=== PATIENT | female | born 1990 | race African-American/Black ===

== ENCOUNTER 2016-09-27 21:08 | Inpatient (IN) ==
[2016-09-27 21:46] LABS: URINE SOURCE VOIDED
[2016-09-27 21:53] LABS: BILIRUBIN URINE NEGATIVE (NEGATIVE); BLOOD URINE NEGATIVE (NEGATIVE); CLARITY CLEAR (CLEAR); COLOR YELLOW; GLUCOSE URINE NEGATIVE (NEGATIVE); LEUKOCYTES URINE 2+ (NEGATIVE); NITRITE URINE NEGATIVE (NEGATIVE); PROTEIN URINE NEGATIVE (NEGATIVE); UROBILINOGEN URINE NORMAL
[2016-09-27 22:28] LABS: UR AMPHETAMINES QUAL NONE DETECTED (NONE DETECT); UR BARBITUATES QUAL NONE DETECTED (NONE DETECT); UR BENZODIAZEPIN QUAL NONE DETECTED (NONE DETECT); UR COCAINE QUAL NONE DETECTED (NONE DETECT); UR MDMA QUAL NONE DETECTED (NONE DETECT); UR METHADONE QUAL NONE DETECTED (NONE DETECT); UR METHAMPHETAMINE QUAL NONE DETECTED (NONE DETECT); UR OPIATES QUAL NONE DETECTED (NONE DETECT); UR OXYCODONE QUAL NONE DETECTED (NONE DETECT); UR PCP QUAL NONE DETECTED (NONE DETECT)
[2016-09-27 22:29] LABS: UR CANNABINOIDS QUAL NONE DETECTED (NONE DETECT); UR TCA QUAL NONE DETECTED (NONE DETECT)
[2016-09-28] MEDS ORDERED: STADOL IV ONE ×2 (01:15→04:39)
[2016-09-28] MEDS: LR 1,000 ML IV SCH ×3 (01:58→09:18)
[2016-09-28] MEDS ORDERED: KEFZOL 1 GM/D5W 50 ML IV PRN (06:19)
[2016-09-28] MEDS ORDERED: TYLENOL PO PRN (06:19)
[2016-09-28] MEDS ORDERED: STADOL IV PRN (06:19)
[2016-09-28] MEDS ORDERED: ZOFRAN IV PRN (06:19)
[2016-09-28] MEDS ORDERED: PEPCID IV PRN (06:19)
[2016-09-28] MEDS ORDERED: PEPCID PO PRN (06:19)
[2016-09-28] MEDS ORDERED: SODIUM CHLORIDE 0.9% INJ SCH (06:30)
[2016-09-28] MEDS ORDERED: PITOCIN 30 UNITS/LR 500 ML IV SCH (06:30)
[2016-09-28] MEDS ORDERED: LR 2,000 ML ONE (07:13)
[2016-09-28] MEDS ORDERED: FENTANYL-BUPIV-NS 2 MCG-0.1% 200 ML ONE (07:13)
[2016-09-28] MEDS ORDERED: MARCAINE 0.25% PF ONE (07:13)
[2016-09-28 07:30] LABS: MANUAL DIFF NEEDED? NO
[2016-09-28 07:33] LABS: BASO% 0.1 % (0.0-0.8); EOS# 0.09 X1000 (0.0-0.7); EOS% 1.1 % (0.0-10.0); HEMATOCRIT 29.3 % (37.0-47.0); HEMOGLOBIN 9.1 g/dL (12.0-16.0); IMM GRAN# 0.02 X1000 (0.0-0.04); IMM GRAN% 0.2 % (0.0-0.5); LYMPH# 1.98 X1000 (1.2-3.4); LYMPH% 24.5 % (20.5-51.1); MCH 24.1 PG (27-31); MCHC 31.1 g/dL (33-37); MCV 77.7 FL (81-99); MONO# 0.57 X1000 (0.11-0.59); MPV 10.2 FL (7.4-10.4); NEUT% 67.1 % (42.2-75.2); PLT 203 X1000 (130-400); RBC 3.77 XMIL (4.2-5.4)
[2016-09-28] MEDS ORDERED: XYLOCAINE-MPF 1% ONE (08:04)
[2016-09-28] MEDS ORDERED: FENTANYL-BUPIV-NS 2 MCG-0.1% 200 ML EPIDURAL PRN (08:09)
[2016-09-28] MEDS ORDERED: PITOCIN IM PRN (18:31)
[2016-09-28] MEDS ORDERED: PITOCIN 20 UNITS/LR 1,000 ML IV SCH (18:31)
[2016-09-28] MEDS ORDERED: BENADRYL PO PRN (18:31)
[2016-09-28] MEDS ORDERED: CYTOTEC PO PRN (18:31)
[2016-09-28] MEDS ORDERED: AMBIEN PO PRN (18:31)
[2016-09-28] MEDS ORDERED: PITOCIN 30 UNITS/LR 500 ML IV ONE (18:31)
[2016-09-28] MEDS ORDERED: MINERAL OIL MISC PRN (18:31)
[2016-09-28] MEDS ORDERED: BENADRYL IV PRN (18:31)
[2016-09-28] MEDS ORDERED: M-M-R II VACCINE SUBQ ONE (18:31)
[2016-09-28] MEDS ORDERED: XYLOCAINE-MPF 1% INJ PRN (18:31)
[2016-09-28] MEDS ORDERED: HYDROXYZINE PO PRN (18:31)
[2016-09-28] MEDS ORDERED: NORCO-5 PO PRN (18:31)
[2016-09-28] MEDS ORDERED: HYDROXYZINE IM PRN (18:31)
[2016-09-28] MEDS ORDERED: BOOSTRIX VACCINE IM ONE (18:31)
[2016-09-28] MEDS: MOTRIN PO PRN (19:26)
[2016-09-28] MEDS: PERI MEDS (DERMOPLAST/NUPERCAINAL/TUCKS) MISC PRN (20:12)
[2016-09-28] MEDS: PERICOLACE PO SCH (20:13)
[2016-09-28] MEDS: NORCO-10 PO PRN (20:16)
[2016-09-28] MEDS: TRANDATE PO SCH (20:20)
--- NOTE | 2016-09-28 21:04 | OPERATIVE NOTE ---
PROCEDURE DATE: 09/28/2016 PREDELIVERY DIAGNOSES: 1. Intrauterine at 38 weeks. 2. Late care. 3. Imprisonment. 4. Hypertension. POST DELIVERY DIAGNOSES: 1. Intrauterine at 38 weeks. 2. Late care. 3. Imprisonment. 4. Hypertension. 5. Shoulder dystocia. PROCEDURE: Vaginal delivery. PHYSICIAN: Dr. Bynum. ANESTHESIA: Epidural by Dr. Bran. FINDINGS: Viable male infant, 7 pounds 1 ounce. Cord was 3 vessels. There was a shoulder dystocia resolved by Antonio and pushing down the anterior shoulder below the pubic bone in delivery. No evidence of any injury or defect from the delivery. ESTIMATED BLOOD LOSS: 100 mL. No lacerations or tears. DESCRIPTION OF DELIVERY: Ms. Kelly is a 26-year-old 4, para 3 who started getting care approximately 3 weeks ago, presents in active labor. Has a slow but steady progression throughout the day but comes to complete, begins pushing, delivers the head at which point the anterior shoulder was noted to be impacted so Antonio was performed and the hand was placed between the pubic bone and the shoulder and the shoulder was gently pushed down and delivered underneath the pubic bone followed by delivery of the rest of the baby. was placed on mother's abdomen. Cord was doubly clamped and cut. Care of was then taken over by nursery personnel. Cord blood was obtained. Cord was inspected and found to have 3 vessels. Then traction on the cord resulted in delivery of the placenta after approximately 4 minutes. It was inspected, found to be intact. Inspection of the perineum and vagina did not reveal any lacerations. There were no clots or foreign material noted in the vagina. Estimated blood loss 100 mL. All counts correct.
[2016-09-28] MEDS ORDERED: EPIFOAM FOAM TOP PRN (22:56)
[2016-09-29] MEDS: NORCO-10 PO PRN ×6 (00:07→23:49)
[2016-09-29] MEDS: MOTRIN PO PRN ×3 (04:29→23:49)
[2016-09-29 05:56] LABS: MANUAL DIFF NEEDED? NO
[2016-09-29 06:03] LABS: BASO% 0.1 % (0.0-0.8); EOS% 0.8 % (0.0-10.0); HEMATOCRIT 27.4 % (37.0-47.0); HEMOGLOBIN 8.4 g/dL (12.0-16.0); IMM GRAN# 0.04 X1000 (0.0-0.04); IMM GRAN% 0.3 % (0.0-0.5); LYMPH# 2.46 X1000 (1.2-3.4); LYMPH% 19.9 % (20.5-51.1); MCH 23.7 PG (27-31); MCHC 30.7 g/dL (33-37); MCV 77.2 FL (81-99); MONO# 0.93 X1000 (0.11-0.59); MONO% 7.5 % (1.7-9.3); NEUT% 71.4 % (42.2-75.2); PLT 207 X1000 (130-400); RBC 3.55 XMIL (4.2-5.4)
[2016-09-29] MEDS: PRECARE PO SCH (08:44)
[2016-09-29] MEDS: TRANDATE PO SCH ×2 (08:44→23:50)
--- NOTE | 2016-09-29 14:58 | PROGRESS NOTE ---
PROCEDURE DATE: 09/29/2016 SUBJECTIVE: She is day 1. She is without complaints. OBJECTIVE: Vital Signs: Her vital signs are stable. She is afebrile. General Appearance: She is alert and cooperative, in no distress. Neck: Supple. Lungs: Clear. Heart: Regular sinus rhythm. Abdomen: Slightly distended. Uterus is firm. Extremities: No cyanosis, clubbing, or edema in her extremities. LABORATORY DATA: Hemoglobin and hematocrit of 8.4/27.4. Expect routine care and discharge in the morning.
[2016-09-29] MEDS ORDERED: MYLICON ONE (23:47)
[2016-09-29] MEDS: PERICOLACE PO SCH (23:49)
[2016-09-30 07:41] VITALS: BP 154/85
[2016-09-30] MEDS: PRECARE PO SCH (09:02)
[2016-09-30] MEDS: TRANDATE PO SCH (09:03)
[2016-09-30] MEDS ORDERED: FLUZONE QUAD 2016-2017 SYRINGE IM ONE (10:00)
[2016-09-30] MEDS: PERI MEDS (DERMOPLAST/NUPERCAINAL/TUCKS) MISC PRN (13:09)
--- NOTE | 2016-09-30 21:15 | DISCHARGE SUMMARY ---
ADMISSION DATE: 09/28/2016 DISCHARGE DATE: 09/30/2016 ADMIT DIAGNOSES: 1. active labor discharged 09/30. 2. Term delivered via vaginal delivery. CONDITION: Stable. DIET: As tolerated. ACTIVITY: Routine . MEDICATIONS: 800, Paxton 5, vitamins with iron and stool softeners. FOLLOWUP: She is to follow up at 6 weeks. She is being discharged back to intermediate. Please refer to Ms. Jaramillo's records and delivery note. She was admitted either night or early Saturday morning in active labor, had a vaginal delivery, has done well afterwards. Currently is ambulating, voiding, tolerating p.o. and is okay for discharge. PHYSICAL EXAMINATION: Vital Signs: Stable. She is afebrile. General: She is alert and cooperative, no distress. Neck: Supple. Lungs: Clear. Heart: Regular sinus rhythm. Abdomen: Slightly distended. Uterus is firm. Extremity: +2 lower extremity edema. Will discharge home as above.
== END 2016-09-30 14:30 | DRG 774 ==
LOC: OPLD 21:08 → P.LD 21:12 → OPLD 09-28 06:16 → P.LD 09-28 06:17
PROVIDERS: ADMIT Obstetrics & Gynecology; ATTEND Obstetrics & Gynecology
PROC: 10E0XZZ Delivery of Products of Conception, External Approach (ICD-10-PCS; principal; 2016-09-28)
PROC: 10907ZC Drainage of Amniotic Fluid, Therapeutic from Products of Conception, Via Natural or Artificial Opening (ICD-10-PCS; 2016-09-28)
DX: O10.92 Unspecified pre-existing hypertension complicating childbirth (principal); O66.0 Obstructed labor due to shoulder dystocia; Z37.0 Single live birth; Z3A.38 38 weeks gestation of pregnancy; Z23 Encounter for immunization
CPT/HCPCS: 59025; 81003; 85025; 86592; 90715; G0477; J0595; J2590; J7120; Q2038; S0020

== ENCOUNTER 2019-09-15 18:52 | Inpatient (IN) ==
[2019-09-15 19:53] LABS: URINE SOURCE CATH
[2019-09-15 20:13] LABS: BILIRUBIN URINE NEGATIVE (NEGATIVE); BLOOD URINE TRACE (NEGATIVE); COLOR YELLOW; GLUCOSE URINE NEGATIVE (NEGATIVE); KETONE URINE TRACE mg/dL (NEGATIVE); LEUKOCYTES URINE LARGE (NEGATIVE); NITRITE URINE POSITIVE (NEGATIVE); PH URINE 5.5; PROTEIN URINE 50 mg/dL (NEGATIVE); SP GRAVITY URINE 1.032; TURBIDITY URINE TURBID (CLEAR); UROBILINOGEN URINE NORMAL (NORMAL)
[2019-09-15 20:16] LABS: BASO# 0.02 X1000 (0.0-0.2); BASO% 0.2 % (0.0-0.8); EOS# 0.07 X1000 (0.0-0.7); EOS% 0.7 % (0.0-10.0); HEMOGLOBIN 12.7 g/dL (12.0-16.0); IMM GRAN# 0.02 X1000 (0.0-0.04); IMM GRAN% 0.2 % (0.0-0.5); LYMPH# 2.43 X1000 (1.2-3.4); LYMPH% 23.2 % (20.5-51.1); MCH 26.5 PG (27-31); MCHC 32.6 g/dL (33-37); MCV 81.3 FL (81-99); MONO# 0.24 X1000 (0.11-0.59); MONO% 2.3 % (1.7-9.3); MPV 11.4 FL (7.4-10.4); NEUT# 7.68 X1000 (1.4-6.5); NEUT% 73.4 % (42.2-75.2); PLT 279 X1000 (130-400); WBC 10.46 X1000 (4.8-10.8)
[2019-09-15 20:17] LABS: UR EPITHELIAL CELLS >10 /HPF (<10); URINE BACTERIA 3+ /HPF; URINE RBC <10 /HPF (<10); URINE WBC TNTC /HPF (<10)
--- NOTE | 2019-09-15 20:19 | PROVIDER DOCUMENTATION ---
This chart was entered by Swetha Vaca Scribe, acting as scribe for Wayne Mcleod MD. [id number] Abuse/Overdose - General Source: police <Wayne Mcleod - Last Filed: 09/15/19 20:07> <Jc Flower - Last Filed: 09/15/19 21:11> - General Chief Complaint: Overdose Stated Complaint: DECREASED RESPONSIVENESS Time Seen by Provider: 09/15/19 18:56 Allergies/Adverse Reactions: Allergies Allergy/AdvReac Type Severity Reaction Status Date / Time No Known Allergies Allergy Verified 09/22/16 19:30 Home Medications: Home Medication List Medication Instructions Recorded Confirmed Last Taken Type Labetalol [Trandate] 100 mg PO BID 09/28/16 09/28/16 1 Day Ago History ~09/27/16 Hydrocodone/APAP 5 mg/325 mg 1 each PO Q3-4H PRN PRN #20 tablet 09/30/16 Unknown Rx [Clare-5] Ibuprofen [Motrin] 800 mg PO Q8H PRN PRN #30 tablet 09/30/16 Unknown Rx Pnv Cmb#95/Ferrous Fumarate/FA 1 tab PO DAILY #30 tablet 09/30/16 Unknown Rx [ Tablet] Sennosides/Docusate Sodium 1 each PO QHS #30 tablet 09/30/16 Unknown Rx [Pericolace] - History of Present Illness-Drug/Alcohol Nature of Presenting Problem: Pt is a 29 yof who presents to ED via police after being involved in a high speed alex. Pt is being charged with felony shoplifting and Police in ED states that the arresting officer told them she took "5 of 30mg of roxycodone. Police in ED also reports that the pt is 3 months and nurse had a heart beat of 157. Pt is unresponsive and not alert. Pt is not verbally responding to questions but nods her head "yes" when asked if she knows where she is. (Wayne Mcleod) Review of Systems - Adult - REVIEW OF SYSTEMS - ADULT ROS:: unobtainable per condition Constitutional: reports: see HPI <Wayne Mcleod - Last Filed: 09/15/19 20:07> Past History - Adult - PAST MEDICAL HISTORY-ADULT Review of Records: reports: Old Records Reviewed, Nursing Assessment Review, Medications Reviewed, Social history reviewed & non-contributory. Obstetrical/Gynecological: reports: PID/STD - PRIOR SURGERIES/PROCEDURES Surgical/Procedure History: reports: cholecystectomy - IMMUNIZATION STATUS Childhood Immunizations: See Nurse Assessment Flu Vaccine: See Nurse Assessment - FAMILY HISTORY Family History: reviewed, not pertinent - SOCIAL HISTORY Smoking: cigarettes Substance Use: denies <Wayne Mcleod - Last Filed: 09/15/19 20:07> Physical Exam-General - CONSTITUTIONAL General Appearance: other (very sedated and responds minimally to question) - HEAD, EARS, NOSE, MOUTH & THROAT HENMT: normocephalic/atraumatic - RESPIRATORY Respiratory: lungs clear, normal breath sounds - CARDIOVASCULAR Cardiovascular: regular rate, rhythm, no edema - GASTROINTESTINAL (ABDOMEN) Abdominal Exam: normal bowel sounds, soft, no organomegaly - MUSCULOSKELETAL Extremity: no pedal edema Peripheral Pulses: radial (R): 3+, radial (L): 3+ - SKIN Integumentary: normal color - NEUROLOGIC Neurologic: other (very sedated) - PSYCHIATRIC Psych/Mental Status: other (very sedated) <Wayne Mcleod - Last Filed: 09/15/19 20:07> Progress - PLAN OF CARE/RESULTS Result Diagrams: 09/15/19 19:37 - CHANGE OF SHIFT REPORT (ED Provider) 1 Report Given and Care Transferred to:: DR Marquez at the end of my shift Time of Transfer: 20:19 (poison control to get involved) <Wayne Mcleod - Last Filed: 09/15/19 20:07> - PLAN OF CARE/RESULTS Result Diagrams: 09/15/19 19:37 09/15/19 19:37 - CONSULTS/PCP/HOSPITALIST Notification #1 *Consult/PCP/Hospitalist*: Dr Amado Time Discussed: 21:10 Consult Disposition: Will see in ED <Jc Flower - Last Filed: 09/15/19 21:11> - PLAN OF CARE/RESULTS Progress/Plan/Lab Results: Vital Signs - 8 hr 09/15/19 19:14 09/15/19 19:16 09/15/19 19:18 Temperature 98.5 F Pulse Rate 85 Respiratory Rate 20 Blood Pressure 129/88 129/88 O2 Sat by Pulse Oximetry 100 97 09/15/19 19:30 09/15/19 19:45 09/15/19 20:00 Temperature Pulse Rate Respiratory Rate Blood Pressure O2 Sat by Pulse Oximetry 96 98 98 09/15/19 20:03 09/15/19 20:15 09/15/19 20:30 Temperature Pulse Rate Respiratory Rate Blood Pressure 135/70 O2 Sat by Pulse Oximetry 95 96 98 09/15/19 20:32 09/15/19 20:45 09/15/19 20:47 Temperature Pulse Rate Respiratory Rate Blood Pressure 99/76 118/81 O2 Sat by Pulse Oximetry 96 96 95 Laboratory Results - last 24 hr 09/15/19 09/15/19 09/15/19 19:37 19:37 19:37 WBC 10.46 RBC 4.80 Hgb 12.7 Hct 39.0 MCV 81.3 MCH 26.5 L MCHC 32.6 L RDW Std Deviation 19.0 H Plt Count 279 MPV 11.4 H Immature Gran % (Auto) 0.2 Neut % (Auto) 73.4 Lymph % (Auto) 23.2 [place] % (Auto) 2.3 Eos % (Auto) 0.7 Baso % (Auto) 0.2 Immature Gran # (Auto) 0.02 Neut # (Auto) 7.68 H Lymph # (Auto) 2.43 [place] # (Auto) 0.24 Eos # (Auto) 0.07 Baso # (Auto) 0.02 Sodium 139 Potassium 3.7 Chloride 103 Carbon Dioxide 21 L Anion Gap 15 BUN 12 Creatinine 0.7 Estimated GFR/1.73 m2 > 60 BUN/Creatinine Ratio 17 Glucose 101 Calculated Osmolality 277 Calcium 11.1 H Total Bilirubin 0.28 AST 14 ALT 7 L Alkaline Phosphatase 85 Total Protein 8.2 Albumin 4.9 Globulin 3.3 Albumin/Globulin Ratio 1.5 Ser , Semi-Qnt Urine Source Urine Color Urine Turbidity Urine pH Ur Specific Lorenzo Urine Protein Ur Glucose (Stick) Ur Ketones (Stick) Urine Blood Urine Nitrite Urine Bilirubin Urobilinogen Dipstick Urine Leukocytes Urine WBC (Auto) Urine RBC (Auto) U Epithel Cells (Auto) Urine Bacteria (Auto) Urine Crystals Small Round Cells Urine Casts Urine Yeast-like Cells Urine Test Urine Opiates Screen Ur Oxycodone Screen Ur Methadone, Qual Ur Barbiturates Screen Ur Phencyclidine Scrn Ur Amphetamines Screen U Benzodiazepines Scrn Urine Cocaine Screen U Cannabinoids Screen Plasma/Serum Ethyl Alc 09/15/19 09/15/19 09/15/19 19:37 19:47 19:47 WBC RBC Hgb Hct MCV MCH MCHC RDW Std Deviation Plt Count MPV Immature Gran % (Auto) Neut % (Auto) Lymph % (Auto) [place] % (Auto) Eos % (Auto) Baso % (Auto) Immature Gran # (Auto) Neut # (Auto) Lymph # (Auto) [place] # (Auto) Eos # (Auto) Baso # (Auto) Sodium Potassium Chloride Carbon Dioxide Anion Gap BUN Creatinine Estimated GFR/1.73 m2 BUN/Creatinine Ratio Glucose Calculated Osmolality Calcium Total Bilirubin AST ALT Alkaline Phosphatase Total Protein Albumin Globulin Albumin/Globulin Ratio Ser , Semi-Qnt < 1.0 Urine Source CATH Urine Color YELLOW Urine Turbidity TURBID Urine pH 5.5 Ur Specific Lorenzo 1.032 Urine Protein 50 A Ur Glucose (Stick) NEGATIVE Ur Ketones (Stick) TRACE A Urine Blood TRACE A Urine Nitrite POSITIVE A Urine Bilirubin NEGATIVE Urobilinogen Dipstick NORMAL Urine Leukocytes LARGE A Urine WBC (Auto) TNTC A Urine RBC (Auto) <10 U Epithel Cells (Auto) >10 A Urine Bacteria (Auto) 3+ Urine Crystals Not Reportable Small Round Cells Not Reportable Urine Casts Not Reportable Urine Yeast-like Cells Not Reportable Urine Test Urine Opiates Screen PRESUMPTIVE POSITIVE A Ur Oxycodone Screen PRESUMPTIVE POSITIVE A Ur Methadone, Qual NONE DETECTED Ur Barbiturates Screen NONE DETECTED Ur Phencyclidine Scrn NONE DETECTED Ur Amphetamines Screen PRESUMPTIVE POSITIVE A U Benzodiazepines Scrn NONE DETECTED Urine Cocaine Screen NONE DETECTED U Cannabinoids Screen NONE DETECTED Plasma/Serum Ethyl Alc 09/15/19 19:47 WBC RBC Hgb Hct MCV MCH MCHC RDW Std Deviation Plt Count MPV Immature Gran % (Auto) Neut % (Auto) Lymph % (Auto) [place] % (Auto) Eos % (Auto) Baso % (Auto) Immature Gran # (Auto) Neut # (Auto) Lymph # (Auto) [place] # (Auto) Eos # (Auto) Baso # (Auto) Sodium Potassium Chloride Carbon Dioxide Anion Gap BUN Creatinine Estimated GFR/1.73 m2 BUN/Creatinine Ratio Glucose Calculated Osmolality Calcium Total Bilirubin AST ALT Alkaline Phosphatase Total Protein Albumin Globulin Albumin/Globulin Ratio Ser , Semi-Qnt Urine Source Urine Color Urine Turbidity Urine pH Ur Specific Lorenzo Urine Protein Ur Glucose (Stick) Ur Ketones (Stick) Urine Blood Urine Nitrite Urine Bilirubin Urobilinogen Dipstick Urine Leukocytes Urine WBC (Auto) Urine RBC (Auto) U Epithel Cells (Auto) Urine Bacteria (Auto) Urine Crystals Small Round Cells Urine Casts Urine Yeast-like Cells Urine Test NEGATIVE Urine Opiates Screen Ur Oxycodone Screen Ur Methadone, Qual Ur Barbiturates Screen Ur Phencyclidine Scrn Ur Amphetamines Screen U Benzodiazepines Scrn Urine Cocaine Screen U Cannabinoids Screen Plasma/Serum Ethyl Alc Orders Category Date Time Status ACETAMINOPHEN [TDM] Stat Lab 09/15/19 20:03 Received ALCOHOL BLOOD Stat Lab 09/15/19 19:37 Completed CBC WITH ELECTRONIC DIFF [HEME] Stat Lab 09/15/19 19:37 Completed COMPREHENSIVE METABOLIC PANEL [CHEM] Stat Lab 09/15/19 19:37 Completed TEST-URINE [PREG] Stat Lab 09/15/19 19:47 Completed QUANT TEST Stat Lab 09/15/19 19:37 Completed SALICYLATES [TDM] Stat Lab 09/15/19 20:03 Received UA NIMS W/REFLEX CULT [URINALYSIS] Stat Lab 09/15/19 19:47 Completed URINE CULTURE [RM] Routine Lab 09/15/19 20:27 Received URINE DRUG SCREEN Stat Lab 09/15/19 19:47 Completed URINE MANUAL MICROSCOPIC [URINALYSIS] Stat Lab 09/15/19 19:47 Completed 0.9% Sodium Chloride Inj [Ns] 1,000 ml Med 09/15/19 20:36 Active IV 999 mls/hr EKG [EKG] Stat Ther 09/15/19 20:18 Ordered Departure <Wayne Mcleod - Last Filed: 09/15/19 20:07> - Departure Date of Disposition Decision: 09/15/19 Time of Disposition Decision: 21:10 Certified Medical Emergency: Emergent - Critical Care Note This patient required my direct & personal management of CC.: No <Jc Flower - Last Filed: 09/15/19 21:11> - Departure DIAGNOSIS: Drug overdose Qualifiers: Encounter type: initial encounter Injury intent: undetermined intent Qualified Code(s): T50.904A - Poisoning by unspecified drugs, medicaments and biological substances, undetermined, initial encounter Disposition: ADMITTED INPATIENT 09 Condition: Serious Referrals and Follow-Ups: None,PCP [Primary Care Provider] - Attestation - Physician/ NICOLA Attestation Patient care was provided by Advanced Practice Provider:: No The physician spent face to face time with patient:: Yes Advanced Practice Provider documentation review:: Supervising physician onsite and consulted in the evaluation and care of this patient. The physician did have a face to face encounter with the patient. <Wayne Mcleod - Last Filed: 09/15/19 20:07> - Physician/ NICOLA Attestation Patient care was provided by Advanced Practice Provider:: No The physician spent face to face time with patient:: Yes Advanced Practice Provider documentation review:: Supervising physician onsite and consulted in the evaluation and care of this patient. The physician did have a face to face encounter with the patient. <Jc Flower - Last Filed: 09/15/19 21:11> This chart was documented by the indicated scribe, (Swetha Vaca Scribe) and accurately reflects the services I performed and decisions made by me, Wayne Mcleod MD, as attested by the provider's signature.
[2019-09-15 20:28] LABS: UR AMPHETAMINES QUAL PRESUMPTIVE POSITIVE (NONE DETECT); UR BARBITUATES QUAL NONE DETECTED (NONE DETECT); UR BENZODIAZEPIN QUAL NONE DETECTED (NONE DETECT); UR CANNABINOIDS QUAL NONE DETECTED (NONE DETECT); UR COCAINE QUAL NONE DETECTED (NONE DETECT); UR METHADONE QUAL NONE DETECTED (NONE DETECT); UR OPIATES QUAL PRESUMPTIVE POSITIVE (NONE DETECT); UR OXYCODONE QUAL PRESUMPTIVE POSITIVE (NONE DETECT); UR PCP QUAL NONE DETECTED (NONE DETECT)
[2019-09-15 20:29] LABS: AGAP 15; ALB/GLOB RATIO 1.5; ALBUMIN 4.9 g/dL (3.5-5.0); ALKALINE PHOSPHATASE 85 U/L (32-104); BUN 12 mg/dL (8-22); CALCIUM 11.1 mg/dL (8.8-10.2); CHLORIDE 103 mmol/L (98-107); COSMO 277; CREATININE 0.7 mg/dL (0.5-0.9); ESTIMATED GFR > 60; GLUCOSE 101 mg/dL (70-104); GOT 14 U/L (10-30); GPT 7 U/L (10-36); POTASSIUM 3.7 mmol/L (3.5-5.1); SODIUM 139 mmol/L (136-145); TCO2 21 mmol/L (25-35); TOTAL BILIRUBIN 0.28 mg/dL (0.20-1.00); TOTAL PROTEIN 8.2 g/dL (6.3-8.3)
[2019-09-15] MEDS ORDERED: NS 1,000 ML IV ONE (20:36)
[2019-09-15 21:12] LABS: ACETAMINOPHEN < 1.2 ug/mL (10-30); SALICYLATES < 3.00 mg/dL (3-10)
[2019-09-15] MEDS ORDERED: ROCEPHIN 1 GM in NS 50 ML IV SCH (21:45)
[2019-09-15] MEDS ORDERED: NS 1,000 ML IV SCH (21:45)
--- NOTE | 2019-09-15 22:28 | Diag Imaging Result Doc PS360 ---
CT HEAD W/O CONTRAST - 09/15/2019 INDICATION: encephalopathy COMPARISON: None FINDINGS: The ventricles and sulci are normal in size and contour. No intracranial mass or hemorrhage. The skull is intact. The sinuses mastoids and middle ears are clear. IMPRESSION: Negative exam. This exam was performed using automated exposure control, adjustment of mA or kV according to patient size, and/or use of iterative reconstruction technique Electronically signed by Warren Rowan 09/15/2019 10:26 PM
--- NOTE | 2019-09-15 23:39 | EKG Report ---
Test Performed on : 09/15/2019 8:44:15 PM Test Reason : CP Blood Pressure : / mmHG Vent. Rate : 079 BPM Atrial Rate : 079 BPM P-R Int : 148 ms QRS Dur : 084 ms QT Int : 348 ms P-R-T Axes : 064 083 053 degrees QTc Int : 399 ms Sinus rhythm. with marked sinus arrhythmia. Possible Left atrial enlargement Borderline ECG No previous ECGs available Unconfirmed Result
--- NOTE | 2019-09-16 00:11 | ED EKG INTERP ---
This chart was entered by Swetha Vaca Scribe, acting as scribe for Jc Flower DO. EKG Interpretation - EKG Time of EKG reading by physician:: 20:45 EKG Read and Signed by:: Jc Flower EKG Interpretation (*Must complete 3 of following elements*): Abnormal (Sinus rhythm with marked sinus arrhytmia) Rate: 79 Rhythm: Sinus rhythm with marked sinus arrhythmia Attestation - Physician/ NICOLA Attestation Patient care was provided by Advanced Practice Provider:: No The physician spent face to face time with patient:: Yes Advanced Practice Provider documentation review:: Supervising physician onsite and consulted in the evaluation and care of this patient. The physician did have a face to face encounter with the patient. This chart was documented by the indicated scribe, (Swetha Vaca Scribe) and accurately reflects the services I performed and decisions made by Mundo rothman Thomas E., DO, as attested by the provider's signature.
[2019-09-16] MEDS ORDERED: ROCEPHIN ONE (00:36)
[2019-09-16 06:42] LABS: MAGNESIUM 1.6 mg/dL (1.5-2.7); PHOSPHORUS 2.6 mg/dL (2.7-4.5)
[2019-09-16] MEDS ORDERED: PROTONIX PO SCH (07:00)
--- NOTE | 2019-09-16 07:11 | HISTORY AND PHYSICAL ---
CHIEF COMPLAINT: Altered mental status. HISTORY OF PRESENT ILLNESS: Ms. Leticia Jaramillo is a 29-year-old female, who has a history of hypertension, as well as seizure disorder. The patient presented to the emergency department at [facility] after being involved in a high-speed alex will police. The patient has been charged with felony shoplifting and the police in the emergency room state that the patient had told them she took 5 tablets of 30 mg Roxicodone. The police in the ED also report that the patient is 3 months . However, the patient's test done returned back negative. During my evaluation the patient was reluctant to speak with me. However, she indicates that she does have a history of hypertension, as well as seizure disorder. PAST SURGICAL HISTORY: She has had a cholecystectomy. SOCIAL HISTORY: She smokes cigarettes. The patient denies any alcohol or drug use. However, the patient's urine drug screen is positive for opiates, oxycodone as well as amphetamines. MEDICATIONS: She takes labetalol, and also a seizure medication of which she does not know the name. ALLERGIES: No known drug allergies. FAMILY HISTORY: No information available. REVIEW OF SYSTEMS: Review of systems is limited. Constitutional: No fever. SPECIALTY MOLDER: No headaches. Respiratory: Cough. Cardiovascular: No chest pain. Gastrointestinal: No nausea, vomiting, or diarrhea. Endocrine: No thyroid disease or diabetes. PHYSICAL EXAMINATION: VITAL SIGNS: Temperature 98.3 degrees, pulse 83, respirations 15, blood pressure 132/88, oxygen saturation is 99%. HEENT: Atraumatic, normocephalic. Pupils are dilated, poorly reactive to light. She is anicteric. No oral lesions noted. NECK: No lymphadenopathy or thyromegaly. CARDIOVASCULAR: S1, S2. RESPIRATORY: Evidence of good entry bilaterally. ABDOMEN: Soft, nontender. No masses felt. EXTREMITIES: No evidence of edema. CENTRAL NERVOUS SYSTEM: No obvious focal deficits noted. DIAGNOSTIC DATA: WBC 10.46, hematocrit is 39.0, with a platelet count of 279,000. Sodium is 139, potassium 3.7, chloride is 103, bicarb is 21, BUN is 12, creatinine 0.7. Calcium 11.1. AST 14, ALT is 7. UA is positive for nitrites, with large amount of leukocytes and numerous WBCs. Urine drug screen positive for opiates, oxycodone, as well as amphetamines. Head CT with no acute intracranial abnormalities. EKG shows sinus rhythm with marked sinus arrhythmia. ASSESSMENT AND PLAN: 1. Toxic encephalopathy. Hospitalized secondary to medication overdose. Closely monitor the patient's neurologic status. I do ancipitate that the patient's mental status will improve with time. 2. Medication overdose. Probably intentional. The patient will need psychiatric evaluation for major depression. 3. Hypertension. Optimize blood pressure control. 4. Seizure disorder. Maintain patient on seizure precaution, as well as antiepileptic agent. 5. Urinary tract infection. Obtain urine and blood cultures. Start patient on empiric antibiotics. 6. Polysubstance abuse. Aware. The patient will need counseling regarding abstinence. 7. The patient is not . Urine and serum test were both negative. 8. Deep vein thrombosis prophylaxis. Sequential compression devices. 9. Gastrointestinal prophylaxis. Proton pump inhibitor. cc: Micky Amado MD
[2019-09-16] MEDS ORDERED: TRANDATE PO SCH (09:00)
[2019-09-16] MEDS ORDERED: OMNICEF PO SCH (09:00)
[2019-09-16] MEDS ORDERED: PRECARE PO SCH (09:00)
[2019-09-16 15:03] VITALS: BP 128/89
--- NOTE | 2019-09-16 15:52 | DISCHARGE SUMMARY ---
ADMISSION DATE: 09/15/2019 DISCHARGE DATE: 09/16/2019 DISCHARGE DIAGNOSES: 1. Toxic encephalopathy. 2. Medication overdose. 3. Hypertension. 4. Polysubstance abuse. 5. Possible urinary tract infection. HOSPITAL COURSE: The patient was brought in by law enforcement. She was shoplifting and then engaged in a high-speed alex with the police. After she was pulled over she took 5 tablets of 30 mg oxycodone after which she became lethargic and mildly encephalopathic. On initial evaluation she told us that she was , but both urine and serum tests returned negative. She states she had a history of hypertension and seizure disorder, but reported only taking medication for blood pressure. No seizure activity was reported prior to admission or seen during admission. Poison Control recommended monitoring heart rate and rhythm and QTc for 6 hours. EKG on admission and repeat approximately 16 hours later both showed essentially normal QTc. The patient during her stay woke up and was conversing normally. UDS was positive for opiates and amphetamines. Urinalysis was not a clean catch, but was suggestive of UTI with 3+ bacteria, so she was started on Omnicef. Prior to discharge urine culture was growing gram-negative rods. She was not febrile or tachycardic and showed no other sign of systemic infection. As the patient was out of the range given by Poison Control for adverse events, her initial dose was relatively unlikely to be problematic to begin with and medical evaluation was unremarkable otherwise. After clearance by Psych, she was discharged back to law enforcement. The patient denied any suicidality and when evaluated by Psych they also felt that she was not a danger to herself and that her ingestion of oxycodone was likely an impulsive event to try and be arrested. CT head was also unremarkable. DISCHARGE VITAL SIGNS: Temperature 98.3 degrees, pulse 89, respirations 19, blood pressure 129/89, and O2 saturation 99% on room air. DISCHARGE DIET: Regular. DISCHARGE MEDICATIONS: Omnicef 300 mg p.o. b.i.d. for 5 days, labetalol 100 mg p.o. b.i.d., and ibuprofen 800 mg p.o. q. 8 hours as needed. FOLLOWUP AND PLAN: The patient discharging on oral antibiotic for possible urinary tract infection. Home blood pressure medications. She is being released to law enforcement. TIME SPENT: Greater than 30 minutes spent arranging discharge.
--- NOTE | 2019-09-16 18:17 | EKG Report ---
Test Performed on : 09/16/2019 11:43:01 AM Test Reason : confirm no prolongation of qtc. ingestion Blood Pressure : / mmHG Vent. Rate : 091 BPM Atrial Rate : 091 BPM P-R Int : 142 ms QRS Dur : 084 ms QT Int : 344 ms P-R-T Axes : 071 090 055 degrees QTc Int : 423 ms Normal sinus rhythm. with sinus arrhythmia. Rightward axis Borderline ECG No previous ECGs available Confirmed by Mario Alberto GALARZA, Faisal ([id number]) on 09/17/2019 10:36:02 AM
[2019-09-16] MEDS ORDERED: PERICOLACE PO SCH (21:00)
== END 2019-09-16 15:30 | DRG 917 ==
LOC: SUPCPDRO → ED 18:52 → ICU 22:42 → SUATTDRO 22:42 → ICU 23:57
PROVIDERS: ATTEND Internal Medicine